=== PATIENT | female | born 1965 | race Caucasian/White ===

== ENCOUNTER 2017-10-06 06:26 | Day surgery (SDC) | payer BC ==
[2017-10-06] MEDS ORDERED: Propofol 10 mg/ml Inj (20 ML) ONE ×2 (08:04→08:23)
[2017-10-06] MEDS ORDERED: Midazolam 2 MG/2 ML VIAL ONE (08:04)
[2017-10-06] MEDS ORDERED: Lactated Ringer's 1,000 ML IV ONE (08:05)
[2017-10-06 08:58] VITALS: TEMP 98.2
[2017-10-06 09:30] VITALS: O2SAT 100
[2017-10-06 09:47] VITALS: BP 96/59; PULSE 58; RESP 12
== END 2017-10-06 09:41 | disposition home or self-care (01) ==
LOC: C.ENDO 06:26
PROVIDERS: ATTEND Internal Medicine Gastroenterology
DX: Z12.11 Encounter for screening for malignant neoplasm of colon (principal); K64.0 First degree hemorrhoids
CPT/HCPCS: 45378; J2001; J2250; J2704; J7120